=== PATIENT | male | born 1950 ===

== ENCOUNTER 2018-04-09 13:27 | Emergency (ER) | payer OTHER ==
[~2018-04-09] VITALS: Ht 180.3 cm; Wt 108.9 kg
[2018-04-09] MEDS ORDERED: COZAAR100 MG (14:07)
[2018-04-09] MEDS ORDERED: AVAPRO75 MG (14:10)
[2018-04-09] MEDS ORDERED: COREG CR10 MG (14:10)
== END 2018-04-09 21:39 | disposition home or self-care (01) ==
LOC: ER 13:27
DX: M54.5 Low back pain (principal)